=== PATIENT | male | born 1940 | race Caucasian/White ===

== ENCOUNTER 2025-06-01 19:32 | Emergency (ER) | payer OTHER, MEDICAID ==
[~2025-06-01] VITALS: Ht 172.7 cm; Wt 80.0 kg
[2025-06-01 19:40] VITALS: O2SAT 99
[2025-06-01 21:40] LABS: ASPARTATE AMINOTRANSFERASE 20 IU/L (<34)
[2025-06-01 21:41] LABS: BILIRUBIN DIRECT 0.1 mg/dL (<=3.0); BILIRUBIN TOTAL 0.5 mg/dL (0.1-1.0); PROTEIN TOTAL 7.4 g/dL (6.0-8.3)
[2025-06-01 22:13] VITALS: BP 130/72; PULSE 68; RESP 17; TEMP 36.8; O2SAT 99
[2025-06-01 22:37] LABS: BASOPHILS % 0.3 % (0.0-2.0); EOSINOPHILS % 5.1 % (0.0-5.0); HEMATOCRIT. 41.9 % (42.0-52.0); HEMOGLOBIN. 14.0 g/dL (14.0-18.0); LYMPHOCYTES % 36.8 % (20.0-50.0); MEAN PLATELET VOLUME 9.0 fl (7.4-10.4); MONOCYTES % 7.7 % (2.0-8.0); NEUTROPHILS % 50.1 % (40.0-76.0); PLATELET 201 x1000/uL (130-400); RED BLOOD CELL COUNT 4.69 mill/uL (4.7-6.1); RED CELL DISTRIBUTION WIDTH 14.2 % (11.6-14.6)
[2025-06-01 22:57] LABS: CREATININE 0.9 mg/dL (0.6-1.3); TROPONIN I HIGH SENSITIVITY < 4 ng/L (3.0-53)
[2025-06-01 22:58] LABS: UREA NITROGEN BLOOD 11 mg/dL (9-23)
== END 2025-06-01 23:52 | disposition home or self-care (01) ==
LOC: ER 19:32 → CMPBEDREQ 06-02 07:50
DX: M79.602 Pain in left arm (principal); E78.00 Pure hypercholesterolemia, unspecified; I10 Essential (primary) hypertension; R06.02 Shortness of breath; Z79.899 Other long term (current) drug therapy; R07.89 Other chest pain
CPT/HCPCS: 36415; 71045; 80048; 80076; 83735; 83880; 84484; 85025; 85379; 93005; 99285